=== PATIENT | male | born 1970 | race Caucasian/White ===

== ENCOUNTER 2023-07-09 10:42 | Emergency (ER) | payer OTHER, SELFPAY ==
[2023-07-09 10:58] VITALS: BP 188/130
--- NOTE | 2023-07-09 12:10 | ED.GENMED ---
History of Present Illness
General
Chief Complaint: Eye Problems
Time Seen by Provider: 07/09/23 11:31
Travel History
Have you had any contact with someone who has COVID-19?: No
Do you have any symptoms of coronavirus? Fever > 100 degrees, chills, cough, shortness of breath, sore throat, loss of taste or smell, muscle aches, or headache?: No
History of Present Illness
History of Present Illness:
52-year-old otherwise healthy male presents to the emergency department for evaluation of right eye swelling and discomfort that began 2 days ago. He was seen in urgent care today and was referred to the emergency department for further evaluation.
He denies any traumatic injuries. Feels as though he may have gotten some hand lotion in the eye recently. Does not wear contact lenses. Reports mild blurry vision, no photophobia, no pain with extraocular motions. No fevers, headaches, nausea,
or vomiting. No rashes on the head
Review of Systems
Review of Systems
Allergies reviewed?: Yes
All Other Systems: ROS reviewed and negative except as documented in HPI and ROS
Phy Exam
Physical Exam
Physical Exam:
GEN: Well appearing, NAD, WDWN
HEENT: Oral mucosa moist, no scleral icterus
Eyes: Significant conjunctival and scleral injection with limbic flush to the right eye, there is moderate chemosis as well. No hyphema or hypopyon. Normal unrestricted extraocular motion. Fluorescein stain reveals no uptake and no evidence for
corneal lesions or foreign bodies.
Visual acuity: OD 20/50, OU 20/25
Cardiac: Regular rate
Lung: No respiratory distress, no tachypnea
MSK: No gross deformity or injuries
Skin: Good color, no pallor or jaundice, no rashes
Neuro: AO x3, moves all extremities freely
Psych: Calm, cooperative
Course
Vital Signs
Initial and Last Documented VS:
Initial Vital Signs
Temp Pulse Resp BP Pulse Ox
99 F 76 18 188/130 99
07/09/23 10:58 07/09/23 10:58 07/09/23 10:58 07/09/23 10:58 07/09/23 10:58
Last Documented Vital Signs
Temp Pulse Resp BP Pulse Ox
99 F 76 18 188/130 99
07/09/23 10:58 07/09/23 10:58 07/09/23 10:58 07/09/23 10:58 07/09/23 10:58
MDM/Problems Addressed
MDM/Problems Addressed:
Patient has no erythema or swelling adjacent to the eye suggestive of periorbital cellulitis. This is likely a chemical keratitis from hand lotion getting the eye recently. No fluorescein uptake concerning for viral keratitis. He has no hyphema
or hypopyon. Will start the patient on topical antibiotics supportively and recommended close outpatient ophthalmology follow-up if not improving
*Critical Care Note
Total Time (30-74mins, 75-104mins- exclusive of procedures): Not Applicable
ED Attending Note
-
Portions of this chart may have been created with voice recognition software.� Occasional wrong word or��sound alike� substitutions may have occurred due to the inherent limitations of voice recognition software.
Discharge Plan
Departure
Patient Disposition: Home (Routine Discharge)
Date of Disposition: 07/09/23
Time of Disposition: 12:11
Patient with high blood pressure during this ER visit?: No
Discharge Problem:
Chemical keratitis
Prescriptions:
New
erythromycin 5 mg/gram (0.5 %) ointment
0.5 inch ophthalmic (eye) QID 5 Days Qty: 3.5 0RF
Referrals:
Jenna Alas MD [Active] - Call in 1-3 days for appt
UNKNOWN - PT DOES,NOT KNOW [Family Provider] -
Activity Restrictions/Additional Instructions:
Your symptoms are most likely due to chemical keratitis which occurs when irritants get into the eye. I am prescribing you a topical antibiotic to use for the next 5 days. If your symptoms or not improving by Tuesday please call the listed
assembly and packing supervisor for follow-up appointment. If you develop vision loss, severe headache, or rashes on the skin do not hesitate to return to the emergency department
Interventions
Interventions:
*Risk Screen - Suicide Last Done: 07/09/23 10:58
*General Assessment Last Done: 07/09/23 10:58
*Neglect/Abuse Screening Last Done: 07/09/23 10:58
*ED COVID-19 Vaccine History Last Done: 07/09/23 12:16
*Nursing Disposition Last Done: 07/09/23 12:16
Discharge Date and Time
Discharge Date/Time: 07/09/23 12:17
== END 2023-07-09 12:17 | disposition home or self-care (01) ==
LOC: EMR 10:42
PROVIDERS: EMERGENCY PHYSICIAN Emergency Medicine
DX: H16.9 Unspecified keratitis (principal)
CPT/HCPCS: 99282

== ENCOUNTER → 2025-03-29 09:38 | Outpatient (REF) | payer OTHER, SELFPAY | LOC: HWRAD 09:38 | PROVIDERS: ATTENDING PHYSICIAN Student in an Organized Health Care Education/Training Program; FAMILY PHYSICIAN Family Medicine | DX: Z51.81 Encounter for therapeutic drug level monitoring (principal); M10.9 Gout, unspecified | CPT/HCPCS: 73630 ==

== ENCOUNTER → 2025-04-08 11:22 | Outpatient (REF) | payer OTHER, SELFPAY | LOC: HWRAD 11:22 | PROVIDERS: ATTENDING PHYSICIAN Student in an Organized Health Care Education/Training Program; FAMILY PHYSICIAN Student in an Organized Health Care Education/Training Program | DX: M10.9 Gout, unspecified (principal); Z51.81 Encounter for therapeutic drug level monitoring | CPT/HCPCS: 76770 ==